=== PATIENT | female | born 1965 | race Caucasian/White ===

== ENCOUNTER 2023-12-31 12:53 | Day surgery (SDC) | payer BC ==
[2023-12-31] MEDS ORDERED: Sodium Bicarbonate 2.5 MEQ/5 ML SDV ONE (13:06)
[2023-12-31] MEDS ORDERED: Lidocaine 1% PF 5 ML VIAL ONE (13:06)
== END 2023-12-31 14:30 | disposition home or self-care (01) ==
LOC: ULT 12:53
PROVIDERS: ATTEND Otolaryngology Plastic Surgery within the Head & Neck
PROC: 0GBG3ZX Excision of Left Thyroid Gland Lobe, Percutaneous Approach, Diagnostic (ICD-10-PCS; principal; 2023-12-31)
DX: E04.1 Nontoxic single thyroid nodule (principal)
CPT/HCPCS: 10005; 88173; 88305